=== PATIENT | male | born 1970 | race American Indian/Alaskan Native ===

== ENCOUNTER 2018-07-04 10:03 | Emergency (ER) | payer OTHER, SELFPAY ==
[~2018-07-04] VITALS: Ht 177.8 cm; Wt 88.6 kg
[2018-07-04 10:07] VITALS: BP 146/97
[2018-07-04] MEDS ORDERED: SYNT25TA PO (10:17)
[2018-07-04 11:08] LABS: HEMATOCRIT 44.3 % (42.0-52.0); MEAN CORPUSCULAR HEMOGLOBIN 32.1 pg (27.0-33.0); MEAN CORPUSCULAR HGB CONC 33.9 g/dl (32.0-36.5); MEAN CORPUSCULAR VOLUME 94.9 fl (80.0-96.0); PLATELET COUNT, AUTOMATED 211 10^3/uL (150-450); RED BLOOD COUNT 4.67 10^6/uL (4.30-6.10); WHITE BLOOD COUNT 8.4 10^3/uL (4.0-10.0)
[2018-07-04 11:17] LABS: ALT/SGPT 96 U/L (12-78); BILIRUBIN,DIRECT 0.1 MG/DL (0.0-0.2); BILIRUBIN,TOTAL 0.4 MG/DL (0.2-1.0); BLOOD UREA NITROGEN 6 MG/DL (7-18); CALCIUM LEVEL 8.8 MG/DL (8.5-10.1); CARBON DIOXIDE LEVEL 24 MEQ/L (21-32); CHLORIDE LEVEL 104 MEQ/L (98-107); CREATININE FOR GFR 0.83 MG/DL (0.70-1.30); ETHYL ALCOHOL (ETHANOL) 0.069 % (0.000-0.010); GLOMERULAR FILTRATION RATE > 60.0 (>60); GLUCOSE, FASTING 107 MG/DL (70-100); POTASSIUM SERUM 4.1 MEQ/L (3.5-5.1); SODIUM LEVEL 138 MEQ/L (136-145)
--- NOTE | 2018-07-04 11:29 | REP ---
Clinical: Tongue numbness . Comparison: None . Findings: The ventricles, sulci, and cisterns are normal in position and appearance. Mcgarry-white differentiation is maintained. No acute intracranial hemorrhage, mass/mass effect, pathology or trauma/injury. No evidence for acute infarction. No extra-axial fluid collection. Calvarium is intact. Paranasal sinuses and mastoid air cells are clear. Impression: Normal noncontrast head CT. No evidence for acute intracranial pathology or trauma/injury. Electronically Signed by Aquilino Londoon MD 07/04/2018 11:20 A
== END 2018-07-04 12:07 | disposition left against medical advice (07) ==
LOC: EDBD 10:03 → M ED 10:03
DX: F10.129 Alcohol abuse with intoxication, unspecified (principal); R20.9 Unspecified disturbances of skin sensation; Y90.0 Blood alcohol level of less than 20 mg/100 ml; E07.9 Disorder of thyroid, unspecified; Z79.890 Hormone replacement therapy; F17.210 Nicotine dependence, cigarettes, uncomplicated
CPT/HCPCS: 36415; 70450; 80048; 80076; 85027; 99282; G0480